=== PATIENT | female | born 1950 | race Caucasian/White ===

== ENCOUNTER 2017-07-11 11:30 | Emergency (ER) | payer MEDICARE, OTHER ==
[~2017-07-11] VITALS: Ht 170.2 cm; Wt 89.0 kg
[~2017-07-11 11:30] MED LIST: ALPR1TAB3 PO; ATOR40TA16 PO; BACL20TA PO; BUSP30TA PO; CITA40TA4 PO; DULO1CAP2 PO; GABA800T PO; LEVO25TA4 PO; LISI10TA3 PO; MODA200T12 PO; MONT10TA4 PO; MULT1TAB84 PO; OMEP20TA93 PO; OXYC-395 PO; PENT400T PO; TIZA4CAP3 PO; TRAZ150T75 PO; WARF4TAB52 PO
[2017-07-11 11:35] VITALS: BP 136/71; PULSE 104; RESP 16; TEMP 99.3; O2SAT 88
[2017-07-11] MEDS ORDERED: SODIUM CHLOR 0.9% 1000 ML INJ 1,000 ML IV ONE (12:45)
[2017-07-11] MEDS ORDERED: ONDANSETRON HCL 4 MG/2 ML VIAL IVP ONE (12:45)
--- NOTE | 2017-07-11 12:50 | PD ---
HPI Chief Complaint: Hypertension Time Seen by Provider: 12:29 Travel History International Travel<30 days: No Contact w/Intl Traveler<30days: No Traveled to known affect area: No History of Present Illness HPI The patient was seen and examined in the presence of the nurse. This patient comes in complaining of some vague malaise. She is very nonspecific. She just doesn't feel well. She's had some nausea. No vomiting or diarrhea or fever. She has a lot of anxiety issues. She has extreme polypharmacy, taking 15 medications that she brought in a huge bag. She saw her primary physician yesterday. She says she checked her blood pressure at home and it was in the 180s. She is not on medication for it. However here in the department checked 3 times is in the 90s systolic. No syncope. Denies chest pain or palpitations. Symptoms severity is moderate. No alleviating factors. Duration one day. No exacerbating factors PFSH Past Medical History Arthritis: Yes Anxiety: Yes Depression: Yes Cancer: Yes (LUNG CA) Cardiovascular Problems: Yes High Cholesterol: Yes Cerebrovascular Accident: Yes Endocrine: Yes Gastrointestinal Disorders: No Genitourinary: Yes Implanted Vascular Access Dvce: No Kidney Stones: Yes Musculoskeletal: Yes Neurologic: Yes Psychiatric: Yes Reproductive: No Respiratory: No Migraines: Yes Thyroid Disease: Yes Past Surgical History Gynecologic Surgery: Yes (PARTIAL HYSTERECTOMY) Other Surgery: Yes Social History Alcohol Use: Yes ("SEVERAL DRINKS TODAY") Tobacco Use: Yes (4 CIGS/DAY) Substance Use: Yes (xanax, percocet ) Allergies-Medications (Allergen,Severity, Reaction): Coded Allergies: Sulfa (Sulfonamide Antibiotics) (Unverified Allergy, Unknown, pt does not know what type of reaction she had, 07/11/17) Reported Meds & Prescriptions Reported Meds & Active Scripts Active Reported Donepezil 5 Mg Tab 5 Mg PO HS Lasix (Furosemide) 20 Mg Tab 20 Mg PO DAILY Warfarin 4 Mg Tab 4 Mg PO SAT,SUN Omeprazole 20 Mg Tab 20 Mg PO BID Levothyroxine (Levothyroxine Sodium) 25 Mcg Tab 25 Mcg PO DAILY Gabapentin 800 Mg Tab 800 Mg PO TID Buspirone (Buspirone HCl) 30 Mg Tab 15 Mg PO BID Pentoxifylline ER (Pentoxifylline) 400 Mg Tab 400 Mg PO TID Tizanidine (Tizanidine HCl) 4 Mg Cap 8 Mg PO TID Atorvastatin (Atorvastatin Calcium) 40 Mg Tab 40 Mg PO HS Alprazolam 1 Mg Tab 1 Mg PO TID PRN Warfarin 1 Mg Tab 8 Mg PO M-F Oxycodone (Oxycodone HCl) 10 Mg Tab 10 Mg PO QID Montelukast (Montelukast Sodium) 10 Mg Tab 10 Mg PO HS Review of Systems General / Constitutional: No: Fever Eyes: No: Visual changes HENT: Positive: Lightheadedness, No: Headaches Cardiovascular: No: Chest Pain or Discomfort Respiratory: No: Shortness of Breath Gastrointestinal: Positive: Nausea, No: Abdominal Pain Genitourinary: No: Dysuria Musculoskeletal: Positive: Weakness, No: Pain Skin: No Rash Neurologic: Positive: Weakness Psychiatric: Positive: Anxiety, No: Depression Endocrine: No: Polydipsia Hematologic/Lymphatic: No: Easy Bruising Physical Exam Narrative GENERAL: Well-nourished, well-developed patient in no apparent distress. SKIN: Focused skin assessment reveals no rash and nodules. Skin is Warm and dry. HEAD: Atraumatic. Normocephalic. EYES: Pupils equal and round. No scleral icterus. No injection or drainage. ENT: No nasal bleeding or discharge. Mucous membranes pink and moist. NECK: Trachea midline. No JVD. CARDIOVASCULAR: Regular rate and rhythm. No murmur appreciated. RESPIRATORY: No accessory muscle use. Clear to auscultation. Breath sounds equal bilaterally. GASTROINTESTINAL: Abdomen soft, non-tender, nondistended. Hepatic and splenic margins not palpable. MUSCULOSKELETAL: No obvious deformities. No clubbing. No cyanosis. No edema. NEUROLOGICAL: Awake and alert. No obvious cranial nerve deficits. Motor grossly within normal limits. Normal speech. PSYCHIATRIC: Appropriate mood and affect; insight and judgment normal. Data Data Last Documented VS Vital Signs Date Time Temp Pulse Resp B/P (MAP) Pulse Ox O2 Delivery O2 Flow Rate FiO2 07/11/17 14:00 84 20 107/53 (71) 97 Nasal Cannula 2.00 07/11/17 11:35 99.3 Orders Orders Iv Access Insert/Monitor (07/11/17 12:43) Complete Blood Count With Diff (07/11/17 12:43) Basic Metabolic Panel (Bmp) (07/11/17 12:43) Sodium Chlor 0.9% 1000 Ml Inj (Ns 1000 M (07/11/17 12:45) Ondansetron Inj (Zofran Inj) (07/11/17 12:45) Prothrombin Time / Inr (Pt) (07/11/17 12:43) Labs Laboratory Tests Test 07/11/17 13:00 White Blood Count 6.7 TH/MM3 Red Blood Count 4.72 MIL/MM3 Hemoglobin 11.4 GM/DL Hematocrit 36.5 % Mean Corpuscular Volume 77.3 FL Mean Corpuscular Hemoglobin 24.1 PG Mean Corpuscular Hemoglobin Concent 31.2 % Red Cell Distribution Width 15.6 % Platelet Count 307 TH/MM3 Mean Platelet Volume 7.4 FL Neutrophils (%) (Auto) 78.2 % Lymphocytes (%) (Auto) 15.3 % Monocytes (%) (Auto) 5.2 % Eosinophils (%) (Auto) 0.7 % Basophils (%) (Auto) 0.6 % Neutrophils # (Auto) 5.4 TH/MM3 Lymphocytes # (Auto) 1.0 TH/MM3 Monocytes # (Auto) 0.3 TH/MM3 Eosinophils # (Auto) 0.0 TH/MM3 Basophils # (Auto) 0.0 TH/MM3 CBC Comment AUTO DIFF Differential Comment AUTO DIFF CONFIRMED Stomatocytes 1+ Prothrombin Time 14.7 SEC Prothromb Time International Ratio 1.3 RATIO Blood Urea Nitrogen 12 MG/DL Creatinine 1.10 MG/DL Random Glucose 112 MG/DL Calcium Level 8.8 MG/DL Sodium Level 139 MEQ/L Potassium Level 4.1 MEQ/L Chloride Level 100 MEQ/L Carbon Dioxide Level 32.3 MEQ/L Anion Gap 7 MEQ/L Estimat Glomerular Filtration Rate 50 ML/MIN [facility] Medical Decision Making Medical Screen Exam Complete: Yes Emergency Medical Condition: Yes Medical Record Reviewed: Yes Differential Diagnosis Overmedication, polypharmacy, gastroenteritis, flu syndrome Narrative Course I have reviewed the patient's electronic medical record. Patient was last here one year ago, June 2016 IV placed I gave her IV Zofran and 1 L normal saline IV bolus Will reassess her pressure after that CBC is reasonably normal Metabolic profile also reasonably normal INR on Coumadin is 1.3 We reviewed the labs in detail. She has extreme polypharmacy I recommended she stop her Lasix and would recommend weaning off her narcotic pills and Xanax There are several other medications she in my opinion should also stop She should review her medication list with her primary physician Current blood pressure 116/69. Stable for outpatient follow-up Diagnosis Primary Impression: Malaise and fatigue Additional Impression: Polypharmacy Additional Instructions: The patient was advised to follow up with their physician and return if they worsen. Stop Lasix Recommend weaning off of narcotic pills and Xanax Recommend reviewing her entire medication list with her primary physician and stopping a lot of the medications Med/Other Pt SpecificInfo: Other Disposition: 01 DISCHARGE HOME Condition: Stable Bradly Grover MD Jul 11, 2017 12:50
[2017-07-11 13:11] VITALS: BP 95/63; PULSE 81; RESP 20; O2SAT 93
[2017-07-11 13:12] LABS: AUTOMATED NEUTROPHIL # 5.4 TH/MM3 (1.8-7.7); BASOPHIL % 0.6 % (0.0-2.0); EOSINOPHIL % 0.7 % (0.0-4.0); HEMATOCRIT 36.5 % (35.0-46.0); LYMPH % 15.3 % (9.0-44.0); MEAN CELL VOLUME 77.3 FL (80.0-100.0); MEAN CORPUSCULAR HEMOGLOBIN 24.1 PG (27.0-34.0); MEAN CORPUSCULAR HGB CONC 31.2 % (32.0-36.0); MONO % 5.2 % (0.0-8.0); NEUT % 78.2 % (16.0-70.0); PLATELET COUNT 307 TH/MM3 (150-450); RED BLOOD COUNT 4.72 MIL/MM3 (4.00-5.30); RED CELL DISTRIBUTION WIDTH 15.6 % (11.6-17.2); WHITE BLOOD COUNT 6.7 TH/MM3 (4.0-11.0)
[2017-07-11 13:20] LABS: HEMO FLAGS AUTO DIFF
[2017-07-11 13:24] LABS: POTASSIUM 4.1 MEQ/L (3.5-5.1)
[2017-07-11] MEDS ORDERED: DONE5TAB7 PO (13:25)
[2017-07-11] MEDS ORDERED: WARF-20 PO (13:25)
[2017-07-11] MEDS ORDERED: FURO1TAB62 PO (13:25)
[2017-07-11 13:27] LABS: BICARBONATE 32.3 MEQ/L (21.0-32.0)
[2017-07-11 13:34] LABS: INTERNATIONAL NORMALIZED RATIO 1.3 RATIO; PROTHROMBIN TIME - PATIENT 14.7 SEC (9.8-11.6)
[2017-07-11 14:00] VITALS: BP 107/53; PULSE 84; RESP 20; O2SAT 97
[2017-07-11 14:11] LABS: SCAN/DIFF AUTO DIFF CONFIRMED; STOMATOCYTES 1+ (NORMAL)
[2017-07-11 14:21] VITALS: BP 116/75
== END 2017-07-11 14:42 | disposition home or self-care (01) ==
LOC: PHED 11:30
DX: R53.81 Other malaise (principal); R53.83 Other fatigue; Z79.899 Other long term (current) drug therapy; R11.0 Nausea; E07.9 Disorder of thyroid, unspecified; E78.00 Pure hypercholesterolemia, unspecified; Z72.0 Tobacco use; Z87.39 Personal history of other diseases of the musculoskeletal system and connective tissue; Z86.59 Personal history of other mental and behavioral disorders; Z86.79 Personal history of other diseases of the circulatory system; Z87.448 Personal history of other diseases of urinary system; Z86.69 Personal history of other diseases of the nervous system and sense organs
CPT/HCPCS: 80048; 85025; 85610; 96361; 96374; 99285; J2405; J7030